=== PATIENT | male | born 1960 | race Caucasian/White ===

== ENCOUNTER → 2016-11-25 | Outpatient (CLI) | payer BC ==
[2016-11-25 13:48] LABS: Blood Urea Nitrogen 20 mg/dL (9-20); Non-African American GFR(MDRD) >60 (>60 ml/min/1.73 sqM)
--- NOTE | 2016-11-25 14:46 | CT ---
EXAMINATION TYPE: CT angio chest DATE OF EXAM: 11/25/2016 2:30 PM COMPARISON: Previous study dated 08/28/2015. HISTORY: thoracic aneurysm CT DLP: 934 mGycm Automated exposure control for dose reduction was used. CONTRAST: CTA scan of the thorax is performed without and with IV Contrast, patient injected with 100 mL of Omn ipaque 350, pulmonary embolism protocol. . FINDINGS: There is atelectatic change present at the right lung base. There is a calcified granuloma at the left lung base. There is no significant axillary, mediastinal or hilar adenopathy. There is no pleural or pericardial fluid. The heart is not enlarged. There are the aorta is aneurysmal measuring 4.6 cm. This is identi eleanor to the measurement on the previous study. At the level of the proximal arch aorta measures 3.1 cm. The proximal descending thoracic aorta measu res 3.2 mm. At the level of the aortic hiatus, the aorta is normal in caliber measuring 2.7 cm. There is evidence of old granulomatous disease in the spleen. Visualized upper abdominal structures a re otherwise normal. There is mild hypertrophic spondylosis within the spine. IMPRESSION: 1. STABLE ASCENDING THORACIC AORTIC ANEURYSM. 2. EVIDENCE OF OLD GRANULOMATOUS DISEASE IN THE LUNGS AND SPLEEN. 3. DEGENERATIVE CHANGE WITHIN THE SPINE.
== END | disposition home or self-care (01) ==
LOC: RADCTMAIN 12:54
PROVIDERS: ATTEND Thoracic Surgery (Cardiothoracic Vascular Surgery)
DX: I71.2 Thoracic aortic aneurysm, without rupture (principal); M47.814 Spondylosis without myelopathy or radiculopathy, thoracic region
CPT/HCPCS: 82565; 84520; 71275; 36415; Q9967

== ENCOUNTER → 2017-07-12 | Outpatient (CLI) | payer BC | END | disposition home or self-care (01) | LOC: RADMRIMAIN 05:57 | PROVIDERS: ATTEND Family Medicine | DX: Z53.9 Procedure and treatment not carried out, unspecified reason (principal) ==

== ENCOUNTER → 2017-07-26 | Outpatient (CLI) | payer BC ==
--- NOTE | 2017-07-26 08:07 | MR ---
EXAMINATION TYPE: MR brain wo con DATE OF EXAM: 07/26/2017 6:34 AM COMPARISON: NONE HISTORY: Memory loss, left side pain, dizziness Multiplanar and multispin-echo imaging of the brain was performed . The ventricles, basal cisterns and sulci overlying the cerebral convexities are within normal limits. There is no evidence for midline shift or mass effect. Acute intracranial hemorrhage or extra-axial collection is not evident. The brain parenchyma reveals no abnormal increased signal. No acute edema is identified. The mastoid air cells are well-aerated. Chronic paranasal sinusitis. IMPRESSION: Unremarkable MRI of the brain. Chronic paranasal sinusitis.
== END | disposition home or self-care (01) ==
LOC: RADMRIMAIN 06:05
PROVIDERS: ATTEND Family Medicine
DX: R41.3 Other amnesia (principal)
CPT/HCPCS: 70551

== ENCOUNTER → 2017-12-01 | Outpatient (CLI) | payer BC ==
--- NOTE | 2017-12-01 08:34 | CT ---
EXAMINATION TYPE: CT chest wo con DATE OF EXAM: 12/01/2017 COMPARISON: 11/25/2016 HISTORY: 57-year-old male thoracic aortic aneurysm without rupture TECHNIQUE: Contiguous axial scanning of the chest without IV contrast. Coronal and sagittal reconstru ctions performed. CT DLP: 446.6 mGycm Automated exposure control for dose reduction was used. FINDINGS: Heart normal size without pericardial effusion. Coronary vessel calcifications are present. Ascending aorta aneurysmal at 4.5 cm versus 4.4 cm, previously. Conventional arterial vessel branching anatomy. Upper descending thoracic aorta aneurysmal at 3.6 cm versus 3.4 cm, previously. Lower descending thoracic aorta mildly aneurysmal at 3.1 cm versus 3.0 cm, previously. Scattered nonenlarged mediastinal lymph nodes. There are calcified left hilar lymph nodes and lower l eft paraesophageal lymph nodes compatible with prior granulomatous disease. No consolidation or pleural effusion. Bands of atelectasis along the lower lungs. Calcified granuloma posterior left base. Visualized upper abdomen shows low-attenuation of the liver suggesting underlying fatty infiltration. Cholecystectomy clips are present as well as calcified granulomas in the spleen. Bones: Mild endplate spondylosis mid to lower thoracic spine. No osseous destructive process. IMPRESSION: 1. ANEURYSMAL THORACIC AORTA (4.5 CM ASCENDING VERSUS 4.4 CM, PREVIOUSLY, AND 3.6 CM UPPER DESCENDING VERSUS 3.4 CM, PREVIOUSLY). STABLE TO MINIMAL INCREASE IN CALIBER. 2. CAD, HEPATIC STEATOSIS, AND PRIOR GRANULOMATOUS DISEASE.
== END | disposition home or self-care (01) ==
LOC: RADCTMAIN 06:48
PROVIDERS: ATTEND Thoracic Surgery (Cardiothoracic Vascular Surgery)
DX: I71.2 Thoracic aortic aneurysm, without rupture (principal); I25.10 Atherosclerotic heart disease of native coronary artery without angina pectoris
CPT/HCPCS: 71250

== ENCOUNTER → 2019-01-05 | Outpatient (CLI) | payer BC ==
[2019-01-05 14:00] LABS: African American GFR (CKD) >90 (>60 ml/min/1.73 sqM); Blood Urea Nitrogen 16 mg/dL (9-20)
--- NOTE | 2019-01-05 15:14 | CT ---
EXAMINATION TYPE: CT angio chest DATE OF EXAM: 01/05/2019 COMPARISON: Chest CT December 01, 2017 and older CTs. HISTORY: Thoracic aneurysm follow up. CT DLP: 412.2 mGycm. Automated Exposure Control for Dose Reduction was Utilized. CONTRAST: CTA scan of the thorax is performed with IV Contrast, patient injected with 100 mL of Isovue 370, pul monary embolism protocol. 3-D reconstructive images are created on an independent workstation and rev iewed. FINDINGS: LUNGS: Patchy bibasilar linear scarring. No pleural effusion or pneumothorax. No suspicious parenchym al nodules or masses. MEDIASTINUM: There is satisfactory enhancement of the central pulmonary artery, there is no CT eviden ce for is large central pulmonary embolism. There are no greater than 1 cm noncalcified hilar or med iastinal lymph nodes. Prominent calcified left infrahilar lymph nodes redemonstrated. No cardiomegal y or pericardial effusion is seen. Main pulmonary artery measures 3.1 cm diameter image 26 not signif icantly changed from prior. Adjacent ascending aorta measures up to 4.4 cm in diameter axial image 29 . Normal three-vessel origin from arch. No significant plaque or stenosis. Coronary calcification aga in seen, noted marker for underlying coronary artery disease. OTHER: Mild to moderate multilevel spurring in the thoracic spine. Multiple calcifications throughout the spleen redemonstrated. Cholecystectomy clips seen. The liver remains low density consistent with diffuse fatty infiltration. IMPRESSION: Stable 4.4 cm ascending aortic aneurysm.
== END | disposition home or self-care (01) ==
LOC: RADCTMAIN 13:30
PROVIDERS: ATTEND Thoracic Surgery (Cardiothoracic Vascular Surgery)
DX: I71.2 Thoracic aortic aneurysm, without rupture (principal)
CPT/HCPCS: 82565; 84520; 71275; 36415; Q9967

== ENCOUNTER → 2020-01-16 | Outpatient (CLI) | payer BC ==
[2020-01-16 08:28] LABS: African American GFR (CKD) >90 (>60 ml/min/1.73 sqM); Blood Urea Nitrogen 17 mg/dL (9-20); Non-African American GFR(CKD) >90 (>60 ml/min/1.73 sqM)
--- NOTE | 2020-01-16 10:05 | CT ---
CT CHEST FOR PULMONARY EMBOLISM. EXAMINATION TYPE: CT angio chest DATE OF EXAM: 01/16/2020 INDICATION: Follow up thoracic aortic aneurysm CT DLP: 911 mGycm, Automated exposure control for dose reduction was used. CONTRAST: Patient injected with 100 mL of Isovue 370. COMPARISON: 01/05/2019 TECHNIQUE: CT of the chest is performed on a spiral scan at 2 mm thick sections. Study is performed with intravenous contrast timed for evaluation for thoracic aneurysm. This will limit additional por tions of the evaluation. 3-D MIP images reconstructed by the technologist are reviewed on the [facility] er in the coronal and sagittal planes. FINDINGS: There is some minimal streak atelectasis or scarring along the right lung base. There is a calcified granuloma within the posterior left lung base measuring 0.4 cm. This is adjacent to a small infiltrat e measuring 0.3 cm. These findings were present previously and are stable. Aorta at the aortic root measures 4.4 cm. The aorta at the bifurcation is 4.4 cm. Transverse aorta at the aortic arch is 3.4 cm. Descending thoracic aorta at the diaphragm is 3.1 cm. No dissection is ev ident. No mediastinal or hilar adenopathy enlarged by CT criteria is evident. The ascending aorta diameter at the level of the main pulmonary artery is 4.4 cm. The main pulmonary artery diameter at the bifur cation is 3.[address] sections are obtained through the upper abdomen. Calcified granuloma are scattered within the spleen. There is been a prior cholecystectomy. Coronary artery calcification is noted. There is a three-vessel arch. IMPRESSIONS: 1. Stable 4.4 cm ascending thoracic aortic aneurysm
== END | disposition home or self-care (01) ==
LOC: RADCTMAIN 07:47
PROVIDERS: ATTEND Thoracic Surgery (Cardiothoracic Vascular Surgery)
DX: I71.2 Thoracic aortic aneurysm, without rupture (principal)
CPT/HCPCS: 82565; 84520; 71275; 36415; Q9967

== ENCOUNTER 2022-05-01 07:56 | Day surgery (SDC) | payer BC ==
[2022-04-28 14:31] VITALS: BMI 29.1
[~2022-05-01 07:56] MED LIST: LIDOCAINE 1% (10MG/ML) FOR IV START INTRADERMA PRN
[2022-05-01] MEDS: LACTATED RINGERS 1,000 ML IV SCH ×2 (08:19→09:09)
[2022-05-01 08:45] LABS: Glucose,Whole Blood 146 mg/dL (70-110)
[2022-05-01 08:47] VITALS: TEMP 97.1
[2022-05-01] MEDS ORDERED: PROPOFOL 10 MG/ML 20 ML VIAL IV ONE (09:10)
--- NOTE | 2022-05-01 09:41 | P.PCN ---
Date of Procedure: 05/01/22 Procedure(s) Performed: BRIEF HISTORY: Patient is a 61-year-old pleasant white male scheduled for an elective colonoscopy as a part of evaluation of prior history of colon polyps. Last colonoscopy was 6 years ago. PROCEDURE PERFORMED: Colonoscopy. PREOPERATIVE DIAGNOSIS: History of colon polyps. IV sedation per Anesthesia. PROCEDURE: After informed consent was obtained, the patient, was brought into the endoscopy unit. IV sedation was administered by Anesthesia under continuous monitoring. Digital rectal examination was normal. Initially the Olympus CF-160 flexible video colonoscope was then inserted in the rectum, gradually advanced into the cecum without any difficulty. Careful examination was performed as the scope was gradually being withdrawn. Ileocecal valve and the appendiceal orifice were visualized and appeared normal. Prep was excellent. Mucosa of the cecum, ascending colon, transverse colon, descending colon, sigmoid colon, and rectum appeared normal. Retroflexion was performed in the rectum and small internal hemorrhoids were seen. The patient tolerated the procedure well. IMPRESSION: Normal-appearing colon from rectum to cecum no evidence of colorectal neoplasia . Small internal hemorrhoids RECOMMENDATIONS: Findings of this examination were discussed with the patient as well as his family. He was advised to have a repeat screening colonoscopy in 10 years..
[2022-05-01 10:16] VITALS: BP 110/70; PULSE 70; RESP 16
== END 2022-05-01 10:39 | disposition home or self-care (01) ==
LOC: ORWHC2ENDO 07:56
PROVIDERS: ATTEND Internal Medicine Gastroenterology
DX: Z12.11 Encounter for screening for malignant neoplasm of colon (principal); K64.8 Other hemorrhoids; Z87.19 Personal history of other diseases of the digestive system; Z86.010 Personal history of colon polyps
CPT/HCPCS: 45378; J2704

== ENCOUNTER → 2024-03-08 | Outpatient (CLI) | payer BC ==
--- NOTE | 2024-03-08 09:04 | CT ---
EXAMINATION TYPE: CT chest without contrast followed by CT angio chest DATE OF EXAM: 03/08/2024 8:59 AM COMPARISON: CT 01/16/2020 CLINICAL INDICATION: Male, 63 years old with history of I71.20 ANEURYSM; thoracic aortic aneurysm TECHNIQUE/CONTRAST: CT chest without contrast followed by CTA scan of the thorax is performed with IV Contrast, patient i njected with 80 mL of Isovue 370, 3D and MIP reconstructed images are created on an independent works tation and reviewed.. CT DLP: 1141.3 mGycm, Automated exposure control for dose reduction was used. FINDINGS: Lungs/Pleura: Atelectasis along the diaphragm on the left with elevated left diaphragm. The right juancarlos phragm is elevated. Consolidation changes within the right upper lung. Left lower lobe calcified gran uloma. Airway: Large airways are patent. Heart: Heart is within normal limits for size. Vasculature: Mild ascending thoracic aorta ectasia up to 4.4 centers. No evidence for intramural ace cooper on noncontrast imaging. No evidence of intimal flap to suggest dissection. No aneurysm identifie d. Scattered atherosclerotic disease. There is no evidence for a filling defect within the pulmonary vasculature centrally to suggest acute pulmonary embolism. The pulmonary artery is of normal size. Mediastinum: No gross evidence of adenopathy. Musculoskeletal: No acute osseous abnormalities, T3 superior endplate compression deformity with 25% height loss. No evidence for significant spinal canal stenosis or neural foraminal stenosis. Soft Tissues/lymph nodes: Unremarkable. Lower neck: No significant findings. Upper Abdomen: Bilateral renal cysts on the right with thin septation. Chronic granulomatous changes of the spleen. The gallbladder surgically absent. IMPRESSION: 1. Right upper lung consolidation changes. Findings are new from prior. Correlate for infectious/inf lammatory process. Short-term follow-up after treatment recommended in 1-2 months to ensure resolutio n. 2. Ascending thoracic aorta ectasia up to 4.4 cm. No evidence for aortic aneurysm, dissection or pul monary embolus. 3. Bosniak type I and type II renal cyst. 4. T3 superior endplate compression deformity with 25% height loss. Stable back to 2019 Follow up recommendations for incidental pulmonary nodules, if there are any, are per [employer] or [employer]. [email or web address] [facility], , 03/08/2024 9:01 AM
== END | disposition home or self-care (01) ==
LOC: RADCTMAIN 07:49
PROVIDERS: ATTEND Family Medicine
CPT/HCPCS: 71275

== ENCOUNTER → 2024-05-08 | Outpatient (CLI) | payer BC ==
--- NOTE | 2024-05-08 15:44 | CT ---
EXAMINATION TYPE: CT chest wo con DATE OF EXAM: 05/08/2024 COMPARISON: 03/08/2024 CLINICAL INDICATION: Male, 63 years old with history of R91.8 OTHER NONSPECIFIC ABNORMAL FINDING OF L YOANNA F; PHH, f/u COPD TECHNIQUE: CT scan of the thorax is performed without IV contrast. CT DLP: 511.[address] CTDI: mGy Automated exposure control for dose reduction was used. FINDINGS: There is a small calcified granuloma in the left lung base. There are a few scattered micronodules. There is no airspace consolidation or abnormal interstitial density. There is no pleural effusion, pleural thickening or pneumothorax. There is 4.6 cm dilatation of the ascending thoracic aorta. There is mild cardiomegaly. There is no mediastinal, hilar or axillary adenopathy. Stable mild superior endplate compression fracture of T3. No focal destructive osseous lesions. IMPRESSION: 1. 4.6 cm dilatation of the ascending thoracic aorta. 2. Stable micronodules. 3. No acute cardiopulmonary disease [facility], , 05/08/2024 3:42 PM
== END | disposition home or self-care (01) ==
LOC: RADCTMAIN 14:53
PROVIDERS: ATTEND Family Medicine
DX: R91.8 Other nonspecific abnormal finding of lung field (principal); J84.10 Pulmonary fibrosis, unspecified
CPT/HCPCS: 71250

== ENCOUNTER → 2024-07-06 | Outpatient (CLI) | payer BC ==
--- NOTE | 2024-07-07 08:36 | CA ---
Transthoracic Echo Report Name: Jared Zaman Age: 64 Gender: M : 1960 Exam Date: 07/06/2024 08:36 Exam Location: [place] [facility] Ht (in): 72 Wt (lb): 208 Ordering Physician: Stephen Barnett MD Attending/Referring Phys: [id number] Junior Php Developer Khai Raymond, RD Procedure CPT: Indications: I71.20 thoracic anerysm Cardiac Hx: Technical Quality: Good Contrast 1: Total Dose (mL): Contrast 2: Total Dose (mL): MEASUREMENTS (Male / Female) Normal Values 2D ECHO LV Diastolic Diameter PLAX 5.3 cm 4.2 - 5.9 / 3.9 - 5.3 cm LV Systolic Diameter PLAX 3.9 cm IVS Diastolic Thickness 1.1 cm 0.6 - 1.0 / 0.6 - 0.9 cm LVPW Diastolic Thickness 1.0 cm 0.6 - 1.0 / 0.6 - 0.9 cm LV Relative Wall Thickness 0.4 RV Internal Dim ED PLAX 3.7 cm Aortic Root Diameter 4.0 cm LV Diastolic Volume MOD 4C 156.4 cm??? LV Systolic Volume MOD 4C 74.2 cm??? LV Ejection Fraction MOD 4C 52.6 % LV Cardiac Index MOD 4C 2720.7 cm???/min???m??? LV Diastolic Length 4C 9.0 cm LV Systolic Length 4C 7.3 cm LA Volume 74.9 cm??? 18 - 58 / 22 - 52 cm??? LA Volume Index 33.9 cm???/m??? 16 - 28 cm???/m??? DOPPLER MV Area PHT 2.7 cm??? Mitral E Point Velocity 46.5 cm/s Mitral A Point Velocity 82.1 cm/s Mitral E to A Ratio 0.6 MV Deceleration Time 280.7 ms FINDINGS Left Ventricle Left ventricular ejection fraction is estimated at 55-60 %. Normal Left ventricular size, wall thickness, systolic function. no obvious regional wall motion abnormalities. Right Ventricle Normal right ventricular size and function. Unable to estimate the right ventricular systolic pressure. Right Atrium Normal right atrial size. Left Atrium Mildly increased left atrial volume. Mitral Valve Mitral valve thickened. Mitral annular calcification. No mitral stenosis. Trace to mild mitral regurgitation. Aortic Valve Trileaflet aortic valve. No aortic stenosis. No aortic regurgitation. Tricuspid Valve Structurally normal tricuspid valve. No tricuspid stenosis. Trace tricuspid regurgitation. Pulmonic Valve Structurally normal pulmonic valve. No pulmonic stenosis. Trace pulmonic regurgitation. Pericardium No pericardial effusion. Aorta Mild aortic dilatation at the level of the sinuses of valsalva (root). CONCLUSIONS Left ventricular ejection fraction is estimated at 55-60 %. No obvious regional wall motion abnormalities. Normal right ventricular size and function. Mild LA dilatation No significant valve dysfunction Previewed by: Dr Jose Manuel Riley (Electronically Signed) Final Date: 07 July 2024 08:35
== END | disposition home or self-care (01) ==
LOC: RADECHMAIN 08:32
PROVIDERS: ATTEND Family Medicine
DX: I71.20 Thoracic aortic aneurysm, without rupture, unspecified (principal); I07.1 Rheumatic tricuspid insufficiency; I34.81 Nonrheumatic mitral (valve) annulus calcification; I34.0 Nonrheumatic mitral (valve) insufficiency
CPT/HCPCS: 93306

== ENCOUNTER → 2024-07-11 | Outpatient (CLI) | payer BC ==
--- NOTE | 2024-07-11 15:03 | US ---
EXAMINATION TYPE: US carotid duplex BILAT DATE OF EXAM: 07/11/2024 COMPARISON: NONE CLINICAL INDICATION: Male, 64 years old with history of I65.29 CAROTID STENOSIS; stenosis Additional History: I65.- Occlusion/stenosis of specified precerebral artery, specified laterality TECHNIQUE: Grayscale, color Doppler and spectral Doppler evaluation of the bilateral carotid systems and vertebral arteries. Indirect Doppler criteria was utilized. FINDINGS: EXAM MEASUREMENTS: RIGHT: Peak Systolic Velocity (PSV) cm/sec ----- Right CCA: 62.5 ----- Right ICA: 79.8 ----- Right ECA: 78.5 ICA/CCA ratio: 1.28 RIGHT: End Diastole cm/sec ----- Right CCA: 16.4 ----- Right ICA: 26.9 ----- Right ECA: 14.7 LEFT: Peak Systolic Velocity (PSV) cm/sec ----- Left CCA: 65.6 ----- Left ICA: 52.9 ----- Left ECA: 88.7 ICA/CCA ratio: 0.8 LEFT: End Diastole cm/sec ----- Left CCA: 19.4 ----- Left ICA: 17.4 ----- Left ECA: 88.7 VERTEBRALS (direction of flow): Right Vertebral: Antegrade Left Vertebral: Antegrade Rhythm: Normal [employer]ADES WORKER NOTES: no plaque seen. No elevated velocities seen. Left ICA slightly limited due to tort uosity. Color Doppler imaging shows patency with blood flow throughout the carotid artery. Spectral waveforms are within normal limits. IMPRESSION: Right: No hemodynamically significant stenosis. Left: No hemodynamically significant stenosis. Criteria for Assigning % of Stenosis / Diameter reduction (Estimation based on the indirect measurements of the internal carotid artery velocities (ICA PSV). 1. Normal (no stenosis)=ICA PSV < 125 cm/s: ratio < 2.0: ICA EDV<40 cm/s. 2. Less than 50% stenosis=ICA PSV < 125 cm/s: ratio < 2.0: ICA EDV<40 cm/s. 3. 50 to 69% stenosis=ICA PSV of 125 to 230 cm/s: ration 2.0 ? 4.0: ICA EDV 40-100 cm/s. 4. Greater than 70% stenosis to near occlusion= ICA PSV > 230 cm/s: ratio > 4.0: ICA EDV > 100 cm/s. 5. Near occlusion= ICA PSV velocities may be low or undetectable: variable ratio and ICA EDV. 6. Total occlusion=unable to detect flow. [facility], , 07/11/2024 3:01 PM
== END | disposition home or self-care (01) ==
LOC: RADUSWWP 09:45
PROVIDERS: ATTEND Family Medicine
DX: I65.23 Occlusion and stenosis of bilateral carotid arteries (principal)
CPT/HCPCS: 93880